=== PATIENT | male | born 1955 | race Caucasian/White ===

== ENCOUNTER 2022-10-15 20:47 | Inpatient (IN) | payer OTHER ==
[~2022-10-15] VITALS: Ht 188 cm; Wt 100.5 kg
[2022-10-15] MEDS ORDERED: CLOPIDOGREL BISULFATE 75 MG TAB PO ONE (21:15)
[2022-10-15] MEDS ORDERED: HEPARIN SODIUM (PORCINE) 5000 UNITS/ML 1ML VIAL IV ONE (21:15)
[2022-10-15 21:36] LABS: Basophils # (auto) 0 10 ^3/uL (0-0.2); Basophils % (auto) 0.2 % (0.0-2.0); Eosinophils # (auto) 0.1 10 ^3/uL (0-0.8); Eosinophils % (auto) 1.6 % (0.0-7.0); Hematocrit 40.8 % (41.0-53.0); Hemoglobin 14.1 g/dL (13.5-17.5); Lymphocytes # (auto) 2.5 10 ^3/uL (0.4-5.4); Lymphocytes % (auto) 45.9 % (10.0-50.0); Mean Corpuscular Hemoglobin 31.7 pg (28.0-32.0); Mean Corpuscular Hgb Conc. 34.5 g/dL (32.0-36.0); Mean Corpuscular Volume 91.8 fL (80.0-100.0); Monocytes # (auto) 0.5 10 ^3/uL (0-1.3); Monocytes % (auto) 9.8 % (0.0-12.0); Neutrophils # (auto) 2.3 10 ^3/uL (1.6-8.6); Neutrophils % (auto) 42.5 % (37.0-80.0); Nucleated Red Blood Cells % 0.2 %; Red Blood Cells 4.45 10^6/uL (4.5-5.90); Red Cell Distribution Width 12.7 % (11.8-14.3); White Blood Cell 5.5 10^3/uL (4.4-10.8)
[2022-10-15 21:47] LABS: Albumin 3.6 g/dL (3.4-5.0); BUN/Creatinine Ratio 17.9; Calcium 9.1 mg/dL (8.5-10.1); Magnesium 2.1 mg/dL (1.6-2.6); Potassium 4.7 mmol/L (3.5-5.1)
[2022-10-15 21:50] LABS: Bilirubin, Total 0.3 mg/dL (0.2-1.0); Total Protein 7.3 g/dL (6.4-8.2)
[2022-10-15] MEDS ORDERED: ANGIOMAX 250 MG VIAL IV ONE (21:58)
[2022-10-15] MEDS ORDERED: MIDAZOLAM HCL 2MG/2ML 2ml VIAL (1mg/ml) ONE ×2 (21:58→22:31)
[2022-10-15] MEDS ORDERED: fentaNYL CITRATE 100 MCG/2 ML VL ONE ×2 (21:59→22:34)
[2022-10-15] MEDS ORDERED: SODIUM CHL 0.9% 50 ML ONE (21:59)
[2022-10-15 22:02] LABS: INR 1.03 (0.9-1.15); Partial Thromboplastin Time 29.5 sec (24.6-33.4)
[2022-10-15] MEDS ORDERED: LIDOCAINE 2%HCL (LOCAL ANESTH.) INJ 20ML MDV ONE (22:02)
[2022-10-15] MEDS ORDERED: ONDANSETRON HCL 4 MG/2 ML VIAL ONE (22:11)
[2022-10-15] MEDS ORDERED: HYDROmorphone HCL 2 MG/ML VL/or syr ONE (23:01)
[2022-10-15] MEDS ORDERED: IOHEXOL 350 MG/ML 100ML IJ ONE (23:04)
[2022-10-15] MEDS ORDERED: CLOPIDOGREL 300 MG TAB ONE ×2 (23:20→23:30)
[2022-10-15] MEDS ORDERED: ASPirin 325 MG TAB ONE (23:22)
[2022-10-15 23:25] VITALS: BP 147/89
[2022-10-15 23:43] VITALS: BP 153/88
[2022-10-15] MEDS ORDERED: METOPROLOL TARTRATE 25 MG TAB PO ONE (23:45)
[2022-10-15 23:55] VITALS: BP 149/76
[2022-10-16] VITALS (7 sets, daily range): BP systolic 108–151; BP diastolic 49–121
[2022-10-16] MEDS ORDERED: ONDANSETRON HCL 4 MG/2 ML VIAL IV ONE (02:00)
[2022-10-16] MEDS ORDERED: HYDROcodone-ACET 5/325MG TAB PO ONE (02:00)
[2022-10-16] MEDS ORDERED: NITROGLYCERIN 0.4 MG SL TAB SL PRN (02:15)
[2022-10-16] MEDS ORDERED: ACETAMINOPHEN 325 MG TAB PO PRN (02:15)
[2022-10-16] MEDS ORDERED: MORPHINE SULFATE INJ 2 MG/ml SYRG IV PRN (02:15)
[2022-10-16] MEDS: ASPirin 81 mg TAB PO SCH (09:27)
[2022-10-16] MEDS: CLOPIDOGREL BISULFATE 75 MG TAB PO SCH (09:27)
[2022-10-16] MEDS: lamoTRIgine 100 MG TAB PO SCH ×2 (09:27→21:42)
[2022-10-16] MEDS: carBAMazepine 200 MG TAB PO SCH (09:27)
[2022-10-16] MEDS: ENOXAPARIN SOD 40 MG/0.4 ML SYRINGE SC SCH (09:29)
[2022-10-16] MEDS: METOPROLOL TARTRATE 25 MG TAB PO SCH ×2 (09:29→21:43)
[2022-10-16] MEDS ORDERED: ATORVASTATIN 20 MG TAB PO ONE (10:00)
[2022-10-16] MEDS ORDERED: METOPROLOL TARTRATE 25 MG TAB PO ONE (10:00)
[2022-10-16] MEDS ORDERED: ASPirin-EC 81 mg tab PO SCH (10:00)
[2022-10-16] MEDS ORDERED: SODIUM CHLORIDE 0.9% 250 ML IV ONE (12:30)
[2022-10-16] MEDS: MORPHINE SULFATE INJ 2 MG/ml SYRG IV PRN ×2 (12:55→18:37)
[2022-10-16 14:52] LABS: Anion Gap 5 (5-15); Blood Urea Nitrogen 19 mg/dL (7-18); Calcium 8.6 mg/dL (8.5-10.1); Carbon Dioxide 28 mmol/L (21-32); Chloride 100 mmol/L (98-107); GFR African American 96 mL/min; GFR Non-African American 79 mL/min; Glucose 134 mg/dL (74-106); Potassium 4.3 mmol/L (3.5-5.1); Sodium 133 mmol/L (136-145)
[2022-10-16] MEDS: ONDANSETRON HCL 4 MG/2 ML VIAL IV PRN (15:06)
[2022-10-16 20:48] LABS: Urine Bacteria NONE SEEN /hpf (None Seen); Urine Blood Negative /uL (Negative); Urine Specific Gravity 1.018 (1.001-1.035); Urine WBC 1 /hpf (0 - 3)
[2022-10-16 21:06] LABS: Alcohol, Urine < 3.0 mg/dL (0-10); Amphetamine Screen, Urine NEGATIVE (NEGATIVE); Barbiturate Scree,Urine NEGATIVE (NEGATIVE); Benzodiazephine Screen, Urine POSITIVE (NEGATIVE); Cannabinoid Screen, Urine POSITIVE (NEGATIVE); Cocaine Screen, Urine NEGATIVE (NEGATIVE); Phencyclidine Screen, Urine NEGATIVE (NEGATIVE)
[2022-10-16 21:17] LABS: Opiate Scree,Urine POSITIVE (NEGATIVE)
[2022-10-16] MEDS: TEMAZEPAM 15 MG CAP PO PRN (21:42)
[2022-10-16] MEDS ORDERED: ATORVASTATIN 20 MG TAB PO SCH ×2 (22:00)
[2022-10-17] VITALS (10 sets, daily range): BP systolic 98–129; BP diastolic 50–74
[2022-10-17] MEDS ORDERED: ROSU10TA16 PO (02:14)
[2022-10-17] MEDS ORDERED: MULT1CAP30 PO (02:22)
[2022-10-17] MEDS ORDERED: BIOTCAP2 PO (02:22)
[2022-10-17] MEDS ORDERED: LAMO200T34 PO (02:22)
[2022-10-17] MEDS ORDERED: CARB200T4 PO (02:22)
[2022-10-17] MEDS ORDERED: IBUP800T27 PO (02:22)
[2022-10-17] MEDS ORDERED: METO25TA5 PO (02:22)
[2022-10-17] MEDS ORDERED: FAMO-12 PO (02:22)
[2022-10-17] MEDS ORDERED: CYA100I PO (02:22)
[2022-10-17] MEDS: ONDANSETRON HCL 4 MG/2 ML VIAL IV PRN (05:15)
[2022-10-17 05:45] LABS: Basophils # (auto) 0 10 ^3/uL (0-0.2); Basophils % (auto) 0.1 % (0.0-2.0); Eosinophils # (auto) 0 10 ^3/uL (0-0.8); Eosinophils % (auto) 0.1 % (0.0-7.0); Hematocrit 38.2 % (41.0-53.0); Hemoglobin 13.4 g/dL (13.5-17.5); Lymphocytes # (auto) 1.4 10 ^3/uL (0.4-5.4); Lymphocytes % (auto) 18.4 % (10.0-50.0); Mean Corpuscular Hemoglobin 31.6 pg (28.0-32.0); Mean Corpuscular Hgb Conc. 35.1 g/dL (32.0-36.0); Mean Corpuscular Volume 90.1 fL (80.0-100.0); Monocytes # (auto) 0.9 10 ^3/uL (0-1.3); Monocytes % (auto) 12.8 % (0.0-12.0); Neutrophils % (auto) 68.6 % (37.0-80.0); Nucleated Red Blood Cells % 0.2 %; Red Blood Cells 4.24 10^6/uL (4.5-5.90); Red Cell Distribution Width 12.6 % (11.8-14.3); White Blood Cell 7.4 10^3/uL (4.4-10.8)
[2022-10-17 06:19] LABS: Albumin 3.1 g/dL (3.4-5.0); BUN/Creatinine Ratio 16.7; Calcium 8.7 mg/dL (8.5-10.1); Potassium 4.2 mmol/L (3.5-5.1)
[2022-10-17 06:35] LABS: Total Protein 6.6 g/dL (6.4-8.2)
[2022-10-17] MEDS: carBAMazepine 200 MG TAB PO SCH (09:51)
[2022-10-17] MEDS: ASPirin 81 mg TAB PO SCH (09:51)
[2022-10-17] MEDS: lamoTRIgine 100 MG TAB PO SCH ×2 (09:51→21:46)
[2022-10-17] MEDS: CLOPIDOGREL BISULFATE 75 MG TAB PO SCH (09:51)
[2022-10-17] MEDS: METOPROLOL TARTRATE 25 MG TAB PO SCH ×2 (09:53→21:46)
[2022-10-17] MEDS: ENOXAPARIN SOD 40 MG/0.4 ML SYRINGE SC SCH (09:53)
[2022-10-17] MEDS: MORPHINE SULFATE INJ 2 MG/ml SYRG IV PRN (10:42)
[2022-10-17] MEDS ORDERED: IODIXANOL 320MG/ML 100ML BTL IV ONE (14:44)
[2022-10-17] MEDS ORDERED: LIDOCAINE 2%HCL (LOCAL ANESTH.) INJ 20ML MDV ONE (14:44)
[2022-10-17] MEDS ORDERED: ANGIOMAX 250 MG VIAL IV ONE (14:45)
[2022-10-17] MEDS ORDERED: fentaNYL CITRATE 100 MCG/2 ML VL ONE (14:45)
[2022-10-17] MEDS ORDERED: MIDAZOLAM HCL 2MG/2ML 2ml VIAL (1mg/ml) ONE (14:45)
[2022-10-17] MEDS ORDERED: SODIUM CHL 0.9% 50 ML ONE (14:45)
[2022-10-17] MEDS ORDERED: HYDROmorphone HCL 2 MG/ML VL/or syr ONE (14:54)
[2022-10-17] MEDS ORDERED: VERAPAMIL 2.5MG/ML INJ 2ML VIAL IV ONE (14:59)
[2022-10-17] MEDS: TEMAZEPAM 15 MG CAP PO PRN (21:45)
[2022-10-18 05:00] VITALS: BP 112/46
[2022-10-18 06:52] LABS: Calcium 8.3 mg/dL (8.5-10.1); Potassium 3.8 mmol/L (3.5-5.1)
[2022-10-18 06:58] LABS: Basophils # (auto) 0 10 ^3/uL (0-0.2); Basophils % (auto) 0.1 % (0.0-2.0); Eosinophils # (auto) 0 10 ^3/uL (0-0.8); Eosinophils % (auto) 0.4 % (0.0-7.0); Hematocrit 34.5 % (41.0-53.0); Hemoglobin 12.4 g/dL (13.5-17.5); Lymphocytes % (auto) 14.4 % (10.0-50.0); Mean Corpuscular Hemoglobin 32.3 pg (28.0-32.0); Mean Corpuscular Volume 89.8 fL (80.0-100.0); Monocytes # (auto) 0.7 10 ^3/uL (0-1.3); Monocytes % (auto) 10.2 % (0.0-12.0); Neutrophils % (auto) 74.9 % (37.0-80.0); Nucleated Red Blood Cells % 0.1 %; Red Blood Cells 3.84 10^6/uL (4.5-5.90); Red Cell Distribution Width 12.5 % (11.8-14.3); White Blood Cell 6.7 10^3/uL (4.4-10.8)
[2022-10-18 08:50] VITALS: BP 123/61
[2022-10-18] MEDS ORDERED: IBUPROFEN 600 MG TAB PO ONE (09:00)
[2022-10-18] MEDS ORDERED: FUROSEMIDE 20 MG/2 ML VIAL IV ONE (09:15)
[2022-10-18] MEDS: carBAMazepine 200 MG TAB PO SCH (09:18)
[2022-10-18] MEDS: CLOPIDOGREL BISULFATE 75 MG TAB PO SCH (09:18)
[2022-10-18] MEDS: ASPirin 81 mg TAB PO SCH (09:19)
[2022-10-18] MEDS: lamoTRIgine 100 MG TAB PO SCH (09:19)
[2022-10-18] MEDS ORDERED: CLOP75TA70 PO (09:20)
[2022-10-18] MEDS: METOPROLOL TARTRATE 25 MG TAB PO SCH (09:32)
[2022-10-18 12:42] VITALS: BP 111/57
[2022-10-18 12:48] VITALS: BP 111/57
== END 2022-10-18 13:48 | disposition home or self-care (01) | DRG 246 ==
LOC: ER 20:47 → CATH 1 22:02 → TELE-WESTW 10-16 00:06
PROVIDERS: ADMIT Specialist; ATTEND Nurse Practitioner Acute Care
PROC: 027035Z Dilation of Coronary Artery, One Artery with Two Drug-eluting Intraluminal Devices, Percutaneous Approach (ICD-10-PCS; principal; 2022-10-15)
PROC: 02C03ZZ Extirpation of Matter from Coronary Artery, One Artery, Percutaneous Approach (ICD-10-PCS; 2022-10-15)
PROC: 4A023N7 Measurement of Cardiac Sampling and Pressure, Left Heart, Percutaneous Approach (ICD-10-PCS; 2022-10-15)
PROC: B211YZZ Fluoroscopy of Multiple Coronary Arteries using Other Contrast (ICD-10-PCS; 2022-10-15)
PROC: B215YZZ Fluoroscopy of Left Heart using Other Contrast (ICD-10-PCS; 2022-10-15)
PROC: B41FYZZ Fluoroscopy of Right Lower Extremity Arteries using Other Contrast (ICD-10-PCS; 2022-10-15)
PROC: B241ZZ3 Ultrasonography of Multiple Coronary Arteries, Intravascular (ICD-10-PCS; 2022-10-15)
PROC: 027034Z Dilation of Coronary Artery, One Artery with Drug-eluting Intraluminal Device, Percutaneous Approach (ICD-10-PCS; 2022-10-17)
PROC: B211YZZ Fluoroscopy of Multiple Coronary Arteries using Other Contrast (ICD-10-PCS; 2022-10-17)
PROC: B240ZZ3 Ultrasonography of Single Coronary Artery, Intravascular (ICD-10-PCS; 2022-10-17)
DX: I21.09 ST elevation (STEMI) myocardial infarction involving other coronary artery of anterior wall (principal); J18.9 Pneumonia, unspecified organism; I11.9 Hypertensive heart disease without heart failure; E11.9 Type 2 diabetes mellitus without complications; G40.909 Epilepsy, unspecified, not intractable, without status epilepticus; I25.10 Atherosclerotic heart disease of native coronary artery without angina pectoris; E78.5 Hyperlipidemia, unspecified; F17.210 Nicotine dependence, cigarettes, uncomplicated; M54.9 Dorsalgia, unspecified; Z20.822 Contact with and (suspected) exposure to COVID-19; R09.89 Other specified symptoms and signs involving the circulatory and respiratory systems; R79.89 Other specified abnormal findings of blood chemistry; I25.2 Old myocardial infarction; I69.30 Unspecified sequelae of cerebral infarction; Z79.82 Long term (current) use of aspirin; Z79.899 Other long term (current) drug therapy; Z82.3 Family history of stroke; Z95.5 Presence of coronary angioplasty implant and graft; Z88.5 Allergy status to narcotic agent; Z88.8 Allergy status to other drugs, medicaments and biological substances; Z90.49 Acquired absence of other specified parts of digestive tract
CPT/HCPCS: 36415; 71045; 80048; 80053; 80061; 80307; 81001; 82306; 83036; 83735; 83880; 84443; 84484; 85025; 85610; 85730; 86850; 86900; 86901; 93005; 93306; 99152; 99153; 99291; C1874; G0378; J2250; J2405; Q9967